=== PATIENT | female | born 1950 | race Caucasian/White ===

== ENCOUNTER 2021-10-25 12:20 | Outpatient (CLI) | payer MEDICARE, SELFPAY ==
[2021-10-25] MEDS: 0.9% Saline Lock 10 ML Syringe IV (12:40)
[2021-10-25 12:41] VITALS: BP 129/80; PULSE 78; RESP 16; TEMP 37.1; O2SAT 96; BMI 25.4
[2021-10-25 13:12] VITALS: BP 127/70; PULSE 72; RESP 16; TEMP 37.1; O2SAT 97
[2021-10-25 14:07] VITALS: BP 148/67; PULSE 69; RESP 16; TEMP 37; O2SAT 96
== END 2021-10-25 14:15 | disposition home or self-care (01) ==
LOC: MS3OUT 12:20 → MS3 12:21
PROVIDERS: PCP Family Medicine; Referring Provider Nurse Practitioner Adult Health; Visit Provider Nurse Practitioner Adult Health
DX: Z23 Encounter for immunization (principal); U07.1 COVID-19
CPT/HCPCS: J7050; M0245; Q0245; A4216

== ENCOUNTER → 2023-10-10 | Outpatient (CLI) | payer MEDICARE, SELFPAY ==
[2023-10-10 13:02] LABS: ALB/GLOB Ratio 1.1 RATIO (0.9-2.4); AST(SGOT) 16 U/L (15-37); Alanine Aminotransfer ALT/SGPT 22 U/L (13-56); Alkaline Phosphatase 62 U/L (45-117); Anion Gap 5 (5-15); BUN 17 mg/dL (7-18); BUN/Creat Ratio 14.9 RATIO (10-20); Chloride 104 mmol/L (98-107); Creatinine, Serum 1.14 mg/dL (0.55-1.02); EST Glomerular Filtration Rate 50 mL/min (>60); Est Glom Filt Rate - Afr Amer 60 mL/min (>60); Globulin 3.8 g/dL (2.2-4.2); Glucose 133 mg/dL (74-106); Potassium 4.3 mmol/L (3.5-5.1); Protein, Total 7.8 g/dL (6.4-8.2); Sodium Level 137 mmol/L (136-145)
[2023-10-12 14:08] LABS: C-Peptide 4.8 ng/mL (1.1-4.4)
== END | disposition home or self-care (01) ==
PROVIDERS: PCP Family Medicine; Visit Provider Family Medicine
DX: E11.9 Type 2 diabetes mellitus without complications (principal)
CPT/HCPCS: 36415; 80053; 83525; 84681

== ENCOUNTER 2024-03-31 13:43 | Emergency (ER) | payer MEDICARE, SELFPAY ==
[2024-03-31 13:44] VITALS: BP 98/81; PULSE 60; RESP 16; TEMP 36.6; O2SAT 98; BMI 26.3
--- NOTE | 2024-03-31 13:55 | RAD_ITS ---
INDICATION: INJURY EXAMINATION/TECHNIQUE: X-RAY - LEFT XR Hand Min 3 Views 4 VIEWS COMPARISON: No relevant prior comparison study available FINDINGS: SOFT TISSUES: No soft tissue swelling or gas. No radiopaque foreign body. BONES/JOINTS: There is a fracture of the second distal metacarpal diaphysis with lateral and ventral displacement of the distal metacarpal. There is a nondisplaced fracture of the third distal metacarpal diaphysis. There are degenerative changes of the radiocarpal and first carpometacarpal joint. There are degenerative changes of the interphalangeal joints as well. No sclerotic or destructive changes observed. RAD/Hand Min 3 Views IMPRESSION: Second and third metacarpal fractures. Degenerative changes. Electronically Signed: Dianna Lozada MD at 14:17 EDT ,
--- NOTE | 2024-03-31 15:34 | EX.ED.UPPERE ---
HPI History of Present Illness Chief Complaint: Upper Extremity Injury Narrative Narrative: 73-year-old female, [id number], past medical history of diabetes presents with injury to her left hand that she sustained prior to arrival when she was mowing the lawn. She states that she was mowing an embankment. The push mower started to turn and fall down the hill, and her hand got caught up with it. She did not fall, hit her head and there was no loss of consciousness but she complains of pain and swelling in her left hand at the base of the second and third digits mainly. She denies other injury. [facility] Medical History (Updated 03/31/24 @ 15:41 by Solis Moses MD) Diabetes Home Medications cholecalciferol (vitamin D3) 25 mcg (1,000 unit) tablet (Vitamin D3) 2,000 unit PO DAILY 02/22/16 [History Last Taken Unknown] cyanocobalamin (vitamin B-12) 1,000 mcg tablet,extended release 1,000 mcg PO DAILY 02/22/16 [History Last Taken Unknown] metformin 500 mg tablet 1,000 mg PO BIDCM 02/22/16 [History Last Taken Unknown] quinapril 20 mg tablet (Accupril) 20 mg PO QHS 02/22/16 [History Last Taken Unknown] sertraline 50 mg tablet 50 mg PO DAILY 02/22/16 [History Last Taken Unknown] simvastatin 80 mg tablet (Zocor) 80 mg PO QHS 02/22/16 [History Last Taken Unknown] acidophilus 25 million cell-pectin, citrus 100 mg tablet 1 ea PO BID #10 tabs 02/24/16 [Rx Last Taken Unknown] cefadroxil 500 mg capsule 500 mg PO BID ##10 02/24/16 [Rx Last Taken Unknown] levothyroxine 50 mcg tablet (Synthroid) 50 mcg PO DAILY 10/25/21 [History Last Taken Unknown] oxycodone-acetaminophen 5 mg-325 mg tablet (Percocet) 1 tab PO Q6H PRN pain 3 days #12 tabs 03/31/24 [Rx Last Taken Unknown] Allergy/AdvReac Type Severity Reaction Status Date / Time adhesive tape Allergy Intermediate unknown Verified 03/31/24 13:45 levofloxacin Allergy Intermediate unknown Verified 03/31/24 13:45 Social History Smoking Status: Never smoker ROS ROS ED ROS Narrative Review of systems, focused, positive for pain and swelling at base of second and third digit of left hand. No headaches, no neck pain, no other injury. EXAM Physical Exam Narrative Exam Narrative: GCS 15. ABCs intact. Regular rate and rhythm. Lungs clear to auscultation bilaterally. Abdomen soft and nontender with normoactive bowel sounds. Examination of the left hand shows mild swelling and ecchymosis with tenderness to palpation at the base of the second digit/distal metacarpal. Positive tenderness to palpation distal third metacarpal. Good capillary refill of all fingers. Palpable radial pulse. Uninjured wrist and above. Const Vital Signs: 03/31/24 13:44 Temperature 97.8 F Temperature Source Temporal Pulse Rate 60 Respiratory Rate 16 Blood Pressure 98/81 H Blood Pressure Mean 86 Pulse Ox 98 Oxygen Delivery Method Room Air MDM MDM MDM Narrative Medical decision making narrative: Concern is for hand sprain/contusion versus fracture. X-rays of the left hand were ordered per RN protocol. I individually interpreted her left hand x-rays and there is evidence of of mildly displaced distal metacarpal fracture of the second digit and a nondisplaced fracture of the third. I reviewed the radiology report which confirms my independent interpretation. At this point in time, she states she has seen [facility] in the past. She will be placed in an AP splint using Ortho-Glass, told to continue ice and elevation at home, and she will be written a prescription for 3 days worth of Percocet. Should she require referral to hand surgeon, was felt that this could be performed by orthopedics after follow-up. Disposition is discharged home in stable condition. Radiography Diagnostic Testing: Clinical Impression(s) from Imaging Studies Hand X-Ray 03/31/24 13:55 IMPRESSION: Second and third metacarpal fractures. Degenerative changes. Electronically Signed: Dianna Lozada MD at 14:17 EDT , Procedures Upper Extremity Splints Upper Extremity Splint: Orthoglass and - (Anterior posterior resting splint) Splint Fabrication: Fabricated Location: Left Discharge Plan Triage Chief Complaint: Upper Extremity Injury ED Provider: Solis Moses Dx/Rx/DC Orders Clinical Impression: Left hand fracture Instructions: Treating Hand Fractures, ED Fracture, Upper Extremity Prescriptions: New oxycodone-acetaminophen [Percocet] 5-325 mg tablet 1 tab PO Q6H PRN (Reason: pain) 3 Days Qty: 12 0RF No Action metformin 500 MG tablet 1,000 mg PO BIDCM cyanocobalamin (vitamin B-12) 1,000 MCG tablet extended release 1,000 mcg PO DAILY simvastatin [Zocor] 80 MG tablet 80 mg PO QHS quinapril [Accupril] 20 MG tablet 20 mg PO QHS sertraline 50 MG tablet 50 mg PO DAILY cholecalciferol (vitamin D3) [Vitamin D3] 1,000 UNIT tablet 2,000 unit PO DAILY cefadroxil 500 MG capsule 500 mg PO BID Qty: 10 0RF acidophilus-pectin, citrus 1 EACH tablet 1 ea PO BID Qty: 10 0RF levothyroxine [Synthroid] 50 mcg Tablet 50 mcg PO DAILY Primary Care Provider: Didi Mccray Referrals: Didi Mccray DO [Primary Care Provider] - Aldo William DO [Med Staff - Active Staff] - 1 Week Activity Restrictions/Additional Instructions: Continue ice and elevation of your left hand when possible. Follow-up with orthopedics within the next week. You may need referral to hand specialist should you require surgery. Disposition Disposition: Home, Self Care
[2024-03-31 16:01] VITALS: BP 126/77; PULSE 68; RESP 15; TEMP 36.6; O2SAT 97
== END 2024-03-31 16:04 | disposition home or self-care (01) ==
LOC: ED 15:46
PROVIDERS: Emergency Provider Emergency Medicine; PCP Family Medicine; Visit Provider Emergency Medicine
DX: S62.92XA Unspecified fracture of left hand, initial encounter for closed fracture (principal); E11.9 Type 2 diabetes mellitus without complications; W23.0XXA Caught, crushed, jammed, or pinched between moving objects, initial encounter
CPT/HCPCS: 29125; 73130; 99283

== ENCOUNTER 2024-04-10 11:23 | Day surgery (SDC) | payer MEDICARE, SELFPAY ==
--- NOTE | 2024-04-08 13:19 | EKG12_ITS ---
Test Reason : PREOP Blood Pressure : / mmHG Vent. Rate : 064 BPM Atrial Rate : 074 BPM P-R Int : 148 ms QRS Dur : 136 ms QT Int : 430 ms P-R-T Axes : 060 -25 121 degrees QTc Int : 443 ms Sinus rhythm with marked sinus arrhythmia Left bundle branch block Abnormal ECG Confirmed by Buck Hill ([id number]), desk editor AURELIA LANG ([id number]) on 04/09/2024 8:56:13 AM Referred By: Aldo William Confirmed By:Buck Hill
[2024-04-08 13:46] LABS: Absolute Lymphocyte Count 2.17 X10^3/uL (0.83-4.51); Absolute Neutrophil Count 4.6 X10^3/uL (2.0-7.7); Basophil# 0.06 X10^3/uL; Basophil% 0.7 % (0-1); Eosinophil# 0.65 X10^3/uL; Eosinophils% 7.9 % (0-5); Hematocrit 41.5 % (37-47); Hemoglobin 13.8 g/dL (12.0-15.0); Lymphocyte # 2.17 X10^3/ul (0.83-4.51); Lymphocyte % 26.4 % (19-41); Mean Corp Hgb Conc 33.3 g/dL (32-36); Mean Corpuscular Hgb 31.5 pg (27.0-32.0); Mean Corpuscular Volume 94.7 fL (81-99); Mean Platelet Vol. 10.2 fl (6.2-12.0); Monocyte# 0.74 X10^3/uL; NRBC Flagged by Analyzer 0 % (0-5); Neutrophil # 4.58 X10^3/uL (2.7-7.7); Neutrophil % 55.8 % (47-70); Platelet Count 289 K/mm3 (150-450); RBC Distribution Width CV 12.9 % (11.6-14.6); Red Blood Count 4.38 M/mm3 (4.2-5.4); White Blood Count 8.2 K/mm3 (4.4-11.0)
[2024-04-08 14:11] LABS: Anion Gap 8 (5-15); BUN 26 mg/dL (7-18); BUN/Creat Ratio 20.5 RATIO (10-20); Calcium,Total 10.2 mg/dL (8.5-10.1); Chloride 103 mmol/L (98-107); Creatinine, Serum 1.27 mg/dL (0.55-1.02); EST Glomerular Filtration Rate 44 mL/min (>60); Est Glom Filt Rate - Afr Amer 53 mL/min (>60); Glucose 142 mg/dL (74-106); Potassium 3.9 mmol/L (3.5-5.1); Sodium Level 138 mmol/L (136-145)
[2024-04-10 11:52] VITALS: BP 147/54; PULSE 65; RESP 16; TEMP 36.4; O2SAT 95; BMI 29.8
[2024-04-10] MEDS: Lactated Ringers 1,000 ML 15 ML IV (12:03)
[2024-04-10 12:32] LABS: Bedside Glucose 114 mg/dL (74-106)
[2024-04-10] MEDS: Cefazolin 2 GM in 0.9% Normal Saline (100mL Bag) 100 ML IV (13:16)
--- NOTE | 2024-04-10 13:20 | RAD_ITS ---
INDICATION: SECOND METACARPAL CLOSE REDUCTION WITH PERCUTANEOUS PINNING EXAMINATION/TECHNIQUE: X-RAY - LEFT XR Hand 2 Views COMPARISON: March 31, 2024 FINDINGS: 2 intraoperative images demonstrate pinning for a fracture at the second metacarpal head . RAD/Hand 2 Views IMPRESSION: Pinning for a second metacarpal head fracture. Electronically Signed: Leroy Martinez DO at 16:15 EDT ,
[2024-04-10 14:05] VITALS: BP 132/49; BP 147/54; PULSE 91; RESP 16; TEMP 36.8; O2SAT 95
[2024-04-10 14:10] VITALS: BP 128/61; BP 147/54; PULSE 92; RESP 16; O2SAT 95
--- NOTE | 2024-04-10 14:14 | OP.PCM_ITS ---
Report of Operation Date of Procedure: 04/10/24 Description of Surgical Findings:: Preoperative diagnosis: Displaced left second metacarpal neck fracture Postoperative diagnosis: Displaced left second metacarpal neck fracture Procedure: Left second metacarpal closed reduction percutaneous pinning Surgeon: Aldo William DO Anesthesia: MAC with axillary block and local Anesthesiologist: Dr. Savage Complications: None apparent Drains: None Estimated blood loss: 1 cc Urinary output: None recorded IV fluids: Per anesthesia record Specimens: None Surgical implants: 0.045 K wires x2 Surgical indications: This is a 73-year-old female who sustained an injury to her left hand. She was mowing her lawn with a push mower and lost control on the side of a hill. Her hand got caught causing a twisting injury to her left hand. She noted deformity and pain. She was brought to the emergency depar tment on 03/31/2024 where x-rays revealed a displaced left second metacarpal neck fracture and nondisplaced left third metacarpal shaft fracture. She was splinted and followed up in my office. There was rotational deformity and sagittal plane malalignment. I recommended surgical intervention in the form of closed versus open reduction with percutaneous pinning of the left second metacarpal fracture. The risk, benefits, alternatives to the procedure reviewed with patient. Risks included but were not limited to bleeding, flexion, loss of life or limb, postoperative stiffness, need for therapy, long-term deformity. Informed consent obtained in the office. Description of procedure: Patient was identified in the preoperative holding area by name, medical record number, and date of . The operative extremity was marked. All questions were answered to patient and parents satisfaction. Informed consent confirmed. Axillary block was administered by anesthesia staff prior to the procedure. At time of her procedure, patient brought to the operative suite and positioned supine a standard operating table. All bony prominences were well-padded. Gentle MAC anesthesia was administered. We prepped and draped the left hand and wrist in a normal, sterile orthopedic fashion. We then performed a timeout with all parties in attendance in agreement with the side, site, operation be performed. No concerns were voiced and would like to proceed with surgery. 2 g Ancef was administered IV. Prereduction fluoroscopic images were obtained. I then performed a closed reduction with longitudinal traction and applied a ulnar translatory force. Reduction appeared anatomic. I then placed 2 crossing percutaneous 0.045 K wires entering the collateral recess of the metacarpal head on the radial and ulnar aspects respectively. Placement and continued reduction was confirmed on orthogonal fluoroscopy. These were saved as finals. Pins were then bent and cut. Xeroform was placed around the pins. Bulky sterile compression dressing was then applied. Patient was placed in a well-padded short arm fiberglass splint with the wrist extended 10 degrees and MCP flexed 70 degrees. Patient tolerated procedure well without complication. She was safely awoken the operative suite. She was transferred to her gurney and subsequent to PACU in stable condition. Post Operative Plan: Weightbearing: Nonweightbearing operative extremity Antibiotics: None DVT Prophylaxis: None indicated Caro: None Dressing: Maintain splint, keep it clean dry and intact until follow-up. Plan to transition to cast for at least 1 additional week. We will plan to maintain pins 3-4 weeks postoperatively. X-Rays: 2 week postop in the office in splint Pain Medication: Narcotic pain prescription provided as an outpatient. Tylenol ibuprofen encouraged. Follow-up: 2 week post-operatively with me in the office
[2024-04-10 14:15] VITALS: BP 129/53; BP 147/54; PULSE 90; RESP 16; O2SAT 95
[2024-04-10 14:25] VITALS: BP 117/53; BP 147/54; PULSE 94; RESP 16; TEMP 36.1; O2SAT 97
[2024-04-10 14:54] VITALS: BP 147/54
== END 2024-04-10 15:02 | disposition home or self-care (01) ==
LOC: SDC 11:24 → AC 11:33
PROVIDERS: PCP Family Medicine; Referring Provider Student in an Organized Health Care Education/Training Program; Visit Provider Student in an Organized Health Care Education/Training Program
PROC: (CPT 26605; principal; 2024-04-10 13:00)
DX: S62.331A Displaced fracture of neck of second metacarpal bone, left hand, initial encounter for closed fracture (principal); E11.9 Type 2 diabetes mellitus without complications; I10 Essential (primary) hypertension; E78.00 Pure hypercholesterolemia, unspecified; E66.3 Overweight; F32.A Depression, unspecified; E07.9 Disorder of thyroid, unspecified; Z68.29 Body mass index [BMI] 29.0-29.9, adult; Z86.16 Personal history of COVID-19; W23.0XXA Caught, crushed, jammed, or pinched between moving objects, initial encounter; Z79.899 Other long term (current) drug therapy; Z79.84 Long term (current) use of oral hypoglycemic drugs
CPT/HCPCS: 26605; 64417; 36415; 73120; 76000; 80048; 82962; 85025; 93005; J7120; J2405

== ENCOUNTER 2024-06-18 08:30 | Outpatient (RCR) | payer MEDICARE, SELFPAY ==
--- NOTE | 2024-05-07 10:54 | HP.OTEVAL_ITS ---
Patient's Visit Information Visit Information Visit Information: XAVIER GREENE is a 73 year old F, referred to Occupational Therapy by Dr. Aldo William, DO, with a diagnosis of Nondisplaced fx of neck of 3rd MC bone, Displaced fx of neck of 2nd MC bone. Date of Evaluation: 05/07/24 Occupational Therapist: April Roth Subjective Subjective: DOI 03/31 where she injured it mowing where her hand got stuck in the handle, sx on 04/10. Pinning in L index MC which are removed today (pins were removed Wednesday 05/02). No pain to report this date. Does have dull ache pain at times. 3 weeks 5 days s/p surgery of pinning. Dr William did surgery. pt presents with volar wrist splint that she wears all the time and cayden tapes /. Pt's most recent appt was 05/02 where she got them removed and said to avoid movement of MP joints and to bend at the PIP joints. Taking Tylenol for pain at times, sleeping okay at night with it propped up on pillows. Pt was in a cast after surgery then switched to splint on 05/02. Next f/u appt with surgeon is May 20. ROM MP: R 55, L 43 IP: R 70, L 55 Radial Abduction: R -20/55, L -25/35 Palmar Abduction: R -20/60, L -20/35 MP: R D4 +10/90, R D5 0/90, L D4 -5/50, L D5 0/54 PIP: R D4 0/106, R D5 -5/105, L D4 -15/62, L D5-4/60 DIP: R D4 0/62, R D5 0/88, L D4 0/10, L D5 0/25 ROM Comments: GARCIA of R D4: 268* GARCIA of L D4: 102* GARCIA of R D5: 278* GARCIA of L D5: 135* Strength Strength Comments: not tested Edema Wrist: R 15.4cm, L 16.5cm Proximal Phalanx: R D4 .5cm, L D4 .6cm Other: L dorsal hand ulnar side 2+, radial side 1+; R MCP 19.5, L MCP 19.8 Quick DASH-Disab of Arm,Shoulder& Hand Quick DASH Score: 77.2725 Goals Goal:: Pt will demo improved GARCIA of L D4/D5 by 100* by d/c for improved motion of L hand during functional bilateral tasks as compared to unaffected hand. Goal:: Pt to demo no more than 3/10 pain during therapeutic activities to promote greater indep in ADLs. Goal:: Pt to demo decreased swelling at L wrist by .5cm for greater potential for return of PLOF in AROM of L wrist. Goal:: Pt will demo good carryover and compliance with HEP to promote good rehab outcome and positive results. Rehabilitation General Assessment: Pt presenting s/p 3 weeks 5 days from pinning surgery following fx of L D2/3 MC bones when her hand was caught in the handle of the mower. Pt presenting with ulnar sided edema on L dorsal hand with limited motion in all digits. Pt reporting dr encouraging D2/3 PIP/DIP motion but to prevent MCP motion at this time. Pt wearing wrist cock up splint with volar bar to maintain good wrist alignment to allow for healing. Pt ed on rehab process of edema/pain reduction, AROM and strengthening. Pt provided with HEP for retrograde massage of L hand/digits as well as PROM of D4/5 and AROM of D2/3 with MCP blocking to initial motion of digits and to reduce swelling. Pt would benefit from skilled OT services x1/week for 2 weeks followed by x2/week for 4 weeks in order to allow for adequate healing time during edema/pain reduction phase prior to initiating increased motion/strength phase. Pt demo good understanding of all exercises and rehab progression. Rehabilitation Potential: Good Anticipated Interventions Anticipated Interventions: A/AAROM/PROM, Strengthening, Edema Control, Massage, Modalities, Fine Motor Coord/Miguel and ADL Training Visit Plan Frequency: 1-2x /Week Duration: 4-6 Weeks General Plan: x1/week for 2 weeks followed by x2/week for 4 weeks TEXT: Thank you for the opportunity to evaluate your patient. For Medicare and Medicare HMO plans, please review the plan of care and approve it. It will need to be FAXED BACK to us at [phone] for Medicare purposes. Please let me know if there are questions or concerns regarding this plan of care. Physician Signature: Date:
--- NOTE | 2024-06-18 09:52 | HP.OTDCSUM ---
Discharge Summary D/C Summary: It has been my pleasure to treat XAVIER GREENE under orders from Dr. Aldo William DO, for the diagnosis of Nondisplaced fx of neck of 3rd MC bone, Displaced fx of neck of 2nd MC bone for a total of 10 visit(s). Please see the following information for a summary of their discharge status. 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 (goal met) Goal:: Pt to demo no more than 3/10 pain during therapeutic activities to promote greater indep in ADLs. (goal met) Goal:: Pt to demo decreased swelling at L wrist by .5cm for greater potential for return of PLOF in AROM of L wrist. (goal met) Goal:: Pt will demo good carryover and compliance with HEP to promote good rehab outcome and positive results. (goal met) Plan Plan: home wrist/forearm exercises per pt request. pt demo understanding. D/C Information Discharge Comments: pt has tolerated therapy well and made significant gains. pt given forearm/wrist exercises for home along with continuing existing HEP. pt demo understanding of home program and pt agrees to POC. [ End ] d/c sentence: If there are questions or concerns regarding this patient's occupational therapy, please fell free to call me at [phone]. Thank you for the referral of this patient. Sincerely, Sumi Garcia, OTR/L, CHT
== END 2024-06-18 19:00 | disposition home or self-care (01) ==
LOC: OT 08:30
PROVIDERS: PCP Family Medicine; Referring Provider Student in an Organized Health Care Education/Training Program; Visit Provider Student in an Organized Health Care Education/Training Program
DX: S62.363D Nondisplaced fracture of neck of third metacarpal bone, left hand, subsequent encounter for fracture with routine healing (principal); S62.331D Displaced fracture of neck of second metacarpal bone, left hand, subsequent encounter for fracture with routine healing
CPT/HCPCS: 97110; 97140; 97165; 97530

== ENCOUNTER → 2025-02-12 | Outpatient (CLI) | payer MEDICARE, SELFPAY ==
[2025-02-12 12:42] LABS: Absolute Lymphocyte Count 2.28 X10^3/uL (0.83-4.51); Absolute Neutrophil Count 3.5 X10^3/uL (2.0-7.7); Basophil# 0.07 X10^3/uL; Eosinophil# 0.73 X10^3/uL; Eosinophils% 10.1 % (0-5); Hematocrit 38.8 % (37-47); Hemoglobin 12.5 g/dL (12.0-15.0); Lymphocyte # 2.28 X10^3/ul (0.83-4.51); Lymphocyte % 31.4 % (19-41); Mean Corp Hgb Conc 32.2 g/dL (32-36); Mean Corpuscular Hgb 31.2 pg (27.0-32.0); Mean Corpuscular Volume 96.8 fL (81-99); Mean Platelet Vol. 11.2 fl (6.2-12.0); Monocyte% 9.6 % (0-10); NRBC Flagged by Analyzer 0 % (0-5); Neutrophil # 3.46 X10^3/uL (2.7-7.7); Neutrophil % 47.6 % (47-70); Platelet Count 253 K/mm3 (150-450); RBC Distribution Width SD 46.4 fl (35.1-43.9); Red Blood Count 4.01 M/mm3 (4.2-5.4); White Blood Count 7.3 K/mm3 (4.4-11.0)
[2025-02-12 19:04] LABS: Hemoglobin A1c 6.5 % (<=5.6)
[2025-02-12 19:41] LABS: ALB/GLOB Ratio 1.5 RATIO (0.9-2.4); AST(SGOT) 17 U/L (<=31); Alanine Aminotransfer ALT/SGPT 12 U/L (<=34); Albumin, Serum 3.9 g/dL (3.4-4.8); Alkaline Phosphatase 54 U/L (35-104); Anion Gap 13 (5-15); BUN 24 mg/dL (4-19); BUN/Creat Ratio 22.5 RATIO (10-20); Calcium,Total 9.7 mg/dL (7.6-11.0); Carbon Dioxide 21.1 mmol/L (21.0-32.0); Chloride 107 mmol/L (98-108); Creatinine, Serum 1.06 mg/dL (0.70-1.20); EST Glomerular Filtration Rate 55 (>60); Free T3 2.2 pg/mL (2.18-3.98); Globulin 2.7 g/dL (2.2-4.2); Glucose 118 mg/dL (70-99); Potassium 5.2 mmol/L (3.3-5.1); Protein, Total 6.6 g/dL (5.9-8.4); Sodium Level 141 mmol/L (133-145); Thyroid Stim Hormone (TSH) 0.661 uIU/mL (0.300-4.200); Total Bilirubin 0.26 mg/dL (0.00-1.30)
[2025-02-12 19:58] LABS: Cholesterol 153 mg/dL (<=200); High Density Lipoprotein 56 mg/dL; Low Density Lipoprotein Calc. 75 mg/dL; Triglycerides 111 mg/dL; Very Low Density Lipoprotein 22 mg/dL (5-40); cholesterol:hdl ratio screen 2.72
== END | disposition home or self-care (01) ==
LOC: BIMLAB 08:40 → BFHLAB 09:24
PROVIDERS: PCP Family Medicine; Referring Provider Family Medicine; Visit Provider Family Medicine
DX: E11.9 Type 2 diabetes mellitus without complications (principal); E03.9 Hypothyroidism, unspecified
CPT/HCPCS: 36415; 80053; 80061; 83036; 84439; 84443; 84481; 85025